=== PATIENT | female | born 1935 | race Caucasian/White ===

== ENCOUNTER 2017-05-26 14:31 | Inpatient (IN) ==
[2017-05-26] MEDS ORDERED: PROTONIX IV SCH (15:15)
[2017-05-26] MEDS ORDERED: SODIUM CHLORIDE 0.9% INJ SCH (15:15)
[2017-05-26 15:57] LABS: ALLEN TEST YES; BLOOD TYPE ARTERIAL; DRAW SITE R RADIAL; METHB 1.1 % (0.0-1.5); PCO2(98.6) 40 mmHg (35-45); PO2(98.6) 72 mmHg (60-100); SAMPLE BLOOD; SAO2 97.5 % (95.0-100.0); THB 12.8 g/dL (11.5-17.4); pH(98.6) 7.43 (7.35-7.45)
[2017-05-26 15:58] LABS: MODALITY ROOM AIR
--- NOTE | 2017-05-26 16:22 | EKG Report ---
Test Performed on : 05/26/2017 3:31:47 PM Test Reason : chest pain Blood Pressure : / mmHG Vent. Rate : 059 BPM Atrial Rate : 059 BPM P-R Int : 138 ms QRS Dur : 092 ms QT Int : 406 ms P-R-T Axes : 051 041 032 degrees QTc Int : 401 ms Sinus bradycardia. Otherwise normal ECG When compared with ECG of 11-FEB-2016 12:29, premature atrial complexes. are no longer present Confirmed by Aiden Downs MD ([id number]) on 05/27/2017 10:35:24 AM
--- NOTE | 2017-05-26 16:32 | Diag Imaging Result Doc PS360 ---
EXAM: HEAD W/O CONTRAST - 05/26/2017 HISTORY: AMS TECHNIQUE: Dose reduction protocol COMPARISON: 12/05/2016 FINDINGS: There is encephalomalacia consistent with old infarct at the posterior inferior parietal lobe on the left which is stable. There are old lacunar infarcts of the bilateral internal capsular/basal ganglia regions. There is an old small infarct in the left cerebellum. There is no indication of recent infarct, although acute infarcts may not be immediately visible. There is no evidence of intracranial hemorrhage, mass effect, or midline shift. IMPRESSION: Multiple old infarcts similar to 12/05/2016. The largest old infarct is located at the posterior inferior left parietal lobe. No visible acute intracranial abnormality. No hemorrhage or mass effect. Electronically signed by Gilbert Hein 05/26/2017 4:30 PM
[2017-05-26 16:46] LABS: URINE MICRO REVIEW NEEDED? NO; URINE SOURCE CATH
--- NOTE | 2017-05-26 16:53 | Diag Imaging Result Doc PS360 ---
EXAM: CHEST-2 VIEWS - 05/26/2017 HISTORY: SOB TECHNIQUE: Chest two views COMPARISON: One view chest of 12/05/2016 FINDINGS: Heart size appears borderline enlarged and stable. Inspiration is mildly shallow. 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 There is limited detail the lateral view which may relate to artifact from motion. There is no dense consolidation, gross vascular congestion, pleural effusion, or pneumothorax identified. IMPRESSION: Mildly shallow inspiration. No other definite evidence of acute disease. Electronically signed by Gilbert Hein 05/26/2017 4:50 PM
[2017-05-26 16:54] LABS: BILIRUBIN URINE NEGATIVE (NEGATIVE); BLOOD URINE TRACE (NEGATIVE); COLOR YELLOW; GLUCOSE URINE NEGATIVE (NEGATIVE); LEUKOCYTES URINE SMALL (NEGATIVE); NITRITE URINE NEGATIVE (NEGATIVE); PROTEIN URINE NEGATIVE (NEGATIVE); SP GRAVITY URINE 1.007; TURBIDITY URINE CLEAR (CLEAR); UROBILINOGEN URINE NORMAL (NORMAL)
[2017-05-26 16:56] LABS: UR EPITHELIAL CELLS <10 /HPF (<10); URINE BACTERIA 1+ /HPF; URINE RBC <10 /HPF (<10); URINE WBC <10 /HPF (<10)
[2017-05-26 17:52] LABS: MANUAL DIFF NEEDED? NO
[2017-05-26 17:55] LABS: BASO% 0.6 % (0.0-0.8); EOS# 0.22 X1000 (0.0-0.7); EOS% 3.2 % (0.0-10.0); HEMATOCRIT 40.8 % (37.0-47.0); LYMPH# 1.53 X1000 (1.2-3.4); LYMPH% 22.1 % (20.5-51.1); MCH 31.6 PG (27-31); MCHC 31.9 g/dL (33-37); MCV 99.3 FL (81-99); MONO# 0.99 X1000 (0.11-0.59); MONO% 14.3 % (1.7-9.3); MPV 10.2 FL (7.4-10.4); NEUT% 59.8 % (42.2-75.2); PLT 250 X1000 (130-400); RBC 4.11 XMIL (4.2-5.4)
[2017-05-26] MEDS: NS 1,000 ML IV SCH (18:12)
[2017-05-26 18:19] LABS: CALCIUM 9.9 mg/dL (8.8-10.2); POTASSIUM 5.1 mmol/L (3.5-5.1)
--- NOTE | 2017-05-26 20:03 | Diag Imaging Result Doc PS360 ---
EXAM: XRAY HIP UNILATERAL LT - 05/26/2017 HISTORY: fall TECHNIQUE: Left hip two views COMPARISON: None. FINDINGS: There is no fracture or dislocation identified. There is metallic hardware which is partially visualized at the mid shaft of the femur. There are atherosclerotic convocations noted. IMPRESSION: No evidence of fracture or dislocation. Electronically signed by Gilbert Hein 05/26/2017 8:01 PM
[2017-05-26] MEDS ORDERED: COLACE PO PRN (21:34)
--- NOTE | 2017-05-27 00:52 | HISTORY AND PHYSICAL ---
CHIEF COMPLAINT: Altered mental status, confusion, recurrent falls, bruising of the skin. Nausea, vomiting, diarrhea for the last few days. HISTORY OF PRESENT ILLNESS: She is a 81-year-old obese white female with underlying dementia, psychiatric issues, obesity, declining of performance status. The is the sole caregiver, who is doing a fabulous job, was seen in the office yesterday. Nausea, vomiting , diarrhea, unable to walk. Yesterday, the labs were not bad. Stool cultures are pending. Apparently, she fell, sustained injury to the head, with bruises. Complains of left hip pain. As a result, admitted to the hospital for altered mental status for further evaluation. As a result, a hospital admission was warranted. PAST MEDICAL HISTORY: Breast cancer on the left side, status post lumpectomy by Dr. Rain. Dementia, hiatal hernia. Endometrial hyperplasia due to tamoxifen, was discontinued. Hypertension, fatty liver, L3 compression fracture, hemorrhoids, histoplasmosis , hyperlipidemia, osteoarthritis, osteoporosis, paroxysmal atrial fibrillation, stasis dermatitis , multiple strokes, with loss on the left side. Ventral hernia. PAST SURGICAL HISTORY: Cholecystectomy, left leg surgery, total knee arthroplasty, bilateral. MEDICATIONS: 1. Calcium, with vitamin D, 1 tablet p.o. b.i.d. 2. Zocor 40 daily. 3. Xarelto 15 daily. 4. Coreg 6.25 p.o. b.i.d. 5. Vitamin B12 1000 mcg daily. 6. Seroquel 400 daily. 7. Singulair 10 daily. 8. Duloxetine 60 daily. 9. Aricept 23 daily. 10. MiraLAX 17 g daily. 11. Colace 100 daily. 12. MiraLAX as needed. 13. Mirtazapine 15 daily. ALLERGIES: Reported to Levaquin, skin rash, and sulfa drugs. SOCIAL HISTORY: . Two children. Retired from teaching. Lives in [place]. No smoking. No alcohol. FAMILY HISTORY: Father of heart attack at 74. Mom of throat cancer at 80. HEALTH MAINTENANCE: Flu vaccine in September 2016. Shingles 2011. Last mammography 2014. DEXA scan 2014. Colonoscopy 01/2016. REVIEW OF SYSTEMS: Unable to obtain due to mental confusion. PHYSICAL EXAMINATION: VITAL SIGNS: 5 feet 6 height. Vitals are stable. HEENT: Atraumatic, normocephalic. Pupils equal, reactive to light. External bruises noted on the chain. NECK: Supple. CHEST: Clear. HEART: Sounds are regular, distant. ABDOMEN: Belly is soft, nontender. Good bowel sounds. No masses palpable. EXTREMITIES: Bilateral knee scars present. Multiple bruises noted. No obvious neurological deficits. INVESTIGATIONS: CBC: White cell count 6.9, hematocrit 40, platelets 250,000. ABG pH is 7.43, pCO2 40, PO2 72, bicarb 26. SMA-7 is normal. Glucose 129. ProBNP 1180. Urinalysis is clear. Stool cultures were done yesterday, results pending. Left hip x-ray: No evidence of fracture or dislocation. CT head: Multiple wall infarct, similar to 12/05/2016, largest located in the left parietal lobe. The patient also had an MRI done last week by Dr. Richie Nixon. EKG: Sinus bradycardia. Nothing acute. Chest x-ray: Shallow inspiration noted. No evidence of acute disease. ASSESSMENT AND PLAN: 1. A 81-year-old white female, admitted to the hospital with metabolic encephalopathy due to diarrhea, dehydration impending. Plan is IV fluids. Follow up on stool culture, stool studies. We will hold off on stool softeners. 2. Recurrent falls due to declining of performance status. 3. Paroxysmal atrial fibrillation, with multiple strokes. Continue on Xarelto. Decrease to 10 mg daily. 4. Hyperlipidemia, on Zocor. 5. Continue on vitamin B12 and vitamin D replacement. 6. Hypertension, on Coreg 6.25 p.o. b.i.d. 7. Dementia, on Aricept 23 mg daily. 8. Depression, under the care of Dr. Rome, status post ECT treatment. Currently, on Cymbalta, Remeron, and Seroquel. 9. Physical Therapy evaluation. Social Service consult for disposition. We will get the MRI reports from open MRI brain. 10. History of breast cancer, left side. Discontinue tamoxifen. Resolving endometrial hyperplasia. Will follow up. cc: Oracio Beard MD [facility]
[2017-05-27] MEDS: NS 1,000 ML IV SCH ×3 (05:02→16:21)
[2017-05-27] MEDS ORDERED: CALTRATE 600 + D PO SCH (09:00)
--- NOTE | 2017-05-27 09:05 | PROGRESS NOTE ---
DATE: 05/27/2017 SUBJECTIVE: The patient looks more stable. No complaints. REVIEW OF SYSTEMS: None reported. Low-grade fever. OBJECTIVE: Vital Signs: Blood pressure is 130/65 and on exam vitals are stable. HEENT: Within normal limits. Neck: Supple. Chest: Clear. Heart: Sounds are regular. Abdomen: Belly is soft, nontender, obese. Good bowel sounds. Neurologic: No neurological deficits. INVESTIGATIONS: X-ray of left hip is negative and stool cultures are pending. ASSESSMENT AND PLAN: 1. Altered mental status. CT head has no acute strokes and we will get the reports from open MRI. 2. Dehydration. IV fluids. 3. Paroxysmal atrial fibrillation. Continue on Xarelto 10 mg. 4. Dementia with depression. Continue present medicines. We will discuss with the caregiver about medications. DISPOSITION: Physical therapy and rehab placement. LEVEL OF DOCUMENTATION: 15 minutes. cc: Oracio Beard MD
[2017-05-27] MEDS: COREG PO SCH ×2 (09:32→23:04)
[2017-05-27] MEDS: CYMBALTA PO SCH (09:32)
[2017-05-27] MEDS: XARELTO PO SCH (09:32)
[2017-05-27] MEDS: ARICEPT PO SCH (09:32)
[2017-05-27] MEDS: CALTRATE 600 + D PO SCH ×2 (09:32→23:04)
[2017-05-27] MEDS ORDERED: CALMOSEPTINE OINTMENT TOP PRN (14:35)
[2017-05-27] MEDS: PATIENT'S OWN MED PO SCH (16:21)
[2017-05-27] MEDS: ZOCOR PO SCH (16:21)
[2017-05-27] MEDS: VITAMIN B-12 PO SCH (16:21)
[2017-05-27] MEDS ORDERED: LEVAQUIN 500 MG/D5W 500 MG/100 ML IVPB IV SCH (20:00)
[2017-05-27] MEDS: REMERON PO SCH (23:04)
[2017-05-27] MEDS: SEROQUEL PO SCH (23:04)
[2017-05-28] MEDS: NS 1,000 ML IV SCH ×2 (04:57→18:33)
[2017-05-28] MEDS: ARICEPT PO SCH (09:18)
[2017-05-28] MEDS: CYMBALTA PO SCH (09:19)
[2017-05-28] MEDS: COREG PO SCH ×2 (09:19→22:24)
[2017-05-28] MEDS: CALTRATE 600 + D PO SCH ×2 (09:19→22:24)
[2017-05-28] MEDS: XARELTO PO SCH (09:19)
[2017-05-28] MEDS: PROTONIX PO SCH (09:19)
[2017-05-28] MEDS: ZOCOR PO SCH (16:32)
[2017-05-28] MEDS: VITAMIN B-12 PO SCH (16:32)
[2017-05-28] MEDS: PATIENT'S OWN MED PO SCH (18:32)
--- NOTE | 2017-05-28 21:52 | PROGRESS NOTE ---
DATE: 05/28/2017 SUBJECTIVE: The patient is doing very well without , eating by herself, not confused. More alert. More bright. REVIEW OF SYSTEMS: None reported. PHYSICAL EXAMINATION: Vital signs: Afebrile. Pulse is 60. Blood pressure is 114/47 on room air 100%. HEENT: Within normal limits. Neck: Supple. Chest: Clear. Heart: Sounds are regular. Abdomen: Belly is soft, nontender. Neurologic: No obvious neurological deficits. INVESTIGATIONS: None reported except urine cultures reported Escherichia coli which is sensitive to Levaquin. ASSESSMENT AND PLAN: 1. Urinary tract infection. Continue on Levaquin. 2. Dehydration. Better on IV fluids. 3. Left hip pain. X-rays were negative. 4. Dementia with depression. Stable. 5. If patient is medically stable for next 24 hours, will be discharged to the rehab for aggressive physical therapy. We will discuss with the caregiver. Continue present medical therapy. LEVEL OF DOCUMENTATION: 15 minutes. cc: Oracio Beard MD
[2017-05-28] MEDS: REMERON PO SCH (22:24)
[2017-05-28] MEDS: SEROQUEL PO SCH (22:24)
[2017-05-29] MEDS: NS 1,000 ML IV SCH (06:10)
[2017-05-29] MEDS: PROTONIX PO SCH (06:11)
--- NOTE | 2017-05-29 08:59 | DISCHARGE SUMMARY ---
ADMISSION DATE: 05/26/2017 DISCHARGE DATE: 05/29/2017 DISCHARGING DIAGNOSIS: Altered mental status due to metabolic encephalopathy due to urinary tract infection and dehydration. SECONDARY DIAGNOSES: 1. Dementia with underlying depression. 2. Osteoporosis. 3. History of breast cancer on the left side in remission. 4. Hiatal hernia. 5. History of endometrial hyperplasia due to tamoxifen, resolved. 6. Hypertension. 7. Fatty liver. 8. L3 compression fracture. 9. Hemorrhoids. 10. Hyperlipidemia. 11. Paroxysmal atrial fibrillation. 12. History of cerebrovascular accident, old, on the left parietal. 13. Ventral hernia. BRIEF HISTORY: Please see the H and P that was done on 05/26. In brief, she is a 81-year-old white female, who has been declining for the last few days. Unable to do her activities at home even with the help of the caregiver or the . She has recurrent falls, diarrhea, confusion. She was found to have UTI. She was given IV fluids and IV antibiotics with Levaquin. The patient had outpatient workup done. MRI of the brain showed left posterior parietal infarction with multiple previous mini stroke due to Lacunar infarcts.She also is suffering from underlying dementia with depression. The patient slowly came back to the baseline. At the request of the family, she has been transferred to rehab. She also had a falls with injury to the left hip. X -rays did not show any evidence of acute fracture. LABS: CBC: White cell count 6.9, hematocrit 40, platelets 250. ABG: The pH is 7.43, pCO2 40, PO2 72 and bicarbonate 26. SMA 7: Sodium 144, potassium 5.1, chloride 104. BUN 17, creatinine 1.0, glucose 129. ProBNP is normal. Troponin was normal. Urine cultures positive for E coli sensitive to Levaquin. RADIOLOGY PROCEDURES: 1. CT head: Multiple old infarcts with the largest one in the left parietal lobe. 2. X-ray of the hip: No acute bony injury. 3. EKG: Normal sinus bradycardia, nothing acute. 4. Chest x-ray: Poor inspiratory film with nothing acute. DISPOSITION: The patient was discharged home in a stable condition to the rehab as follows: Levaquin 500 once a day for 7 days, calcium with vitamin D 1 tablet p.o. b.i.d. , Zocor 40 daily, Xarelto 15 daily, Coreg 6.25 p.o. b.i.d., vitamin B 12 1000 mcg daily, Seroquel 400 daily, multivitamin 1 tablet daily, Singular 10 daily, Cymbalta 60 daily, Aricept 23 daily, Colace 100 daily, Remeron 15 daily. Follow up in my office in 2 weeks. cc: Oracio Beard MD [facility]
[2017-05-29 12:44] VITALS: BP 151/90
[2017-05-29] MEDS ORDERED: LEVAQUIN PO SCH (21:00)
== END 2017-05-29 14:21 ==
LOC: DIRADM 14:31 → 4N 15:25
PROVIDERS: ADMIT Internal Medicine; ATTEND Internal Medicine